=== PATIENT | male | born 1965 | race Caucasian/White ===

== ENCOUNTER 2018-04-02 11:29 | Day surgery (SDC) | payer BC ==
[2018-04-02] MEDS ORDERED: ACETAMINOPHEN 1,000 MG/100 ML BTL IV ONE (11:30)
[2018-04-02] MEDS ORDERED: MIDAZOLAM HCL 2MG/2ML VIAL IV ONE (11:30)
[2018-04-02] MEDS ORDERED: LIDOCAINE 2% MDV (20MG/ML) 20ML VIAL IV ONE (11:30)
[2018-04-02] MEDS ORDERED: PROPOFOL 10 MG/ML VIAL IV ONE (11:30)
[2018-04-02] MEDS ORDERED: KETOROLAC 30 MG/ML VIAL IVP ONE (11:30)
[2018-04-02] MEDS ORDERED: BUPIVACAINE 0.5% W/EPI MPF 30 ML VIAL IVP ONE (11:30)
[2018-04-02] MEDS ORDERED: DESFLURANE 240 ML BTL INH ONE (11:30)
--- NOTE | 2018-04-05 14:02 | Operative Note ---
DATE OF SURGERY: 04/02/2018 PREOPERATIVE DIAGNOSES: 1. LARGE RIGHT OLECRANON SPUR. 2. RIGHT OLECRANON BURSITIS. PROCEDURE: 1. EXCISION RIGHT OLECRANON SPUR. 2. EXCISION RIGHT OLECRANON BURSA. STAFF SURGEON: COCO MCCLURE M.D. ANESTHESIA: GENERAL. PREPARATION: CHLORAPREP. INDIVIDUAL CONSIDERATIONS: NONE. PROCEDURE: The patient was taken to the Operating Room and placed supine on the operating table. He had a successful induction with general anesthetic. His right upper extremity was prepped and then draped in the usual fashion. His limb was elevated. The tourniquet was inflated to 215 mmHg. The patient had a large palpable spur. An incision was made after infiltrating the skin with 0.5% Marcaine with Epinephrine over the spur, measuring about 4 cm. Sharp dissection carried down through the skin and subcutaneous tissue. The spur was underneath the bursa, which was debrided with scissor dissection. Using an osteotome, I was easily able to remove the spur, which measured about 2 cm x 1 cm. The underlying bone was smoothed with a rasp. After irrigation, I just closed the skin with interrupted nylon in a vertical mattress fashion and a Bulkee dressing was applied. The patient tolerated the procedure well. Needle and sponge counts were correct, estimated blood loss was minimal, and he was taken back to Recovery in good condition. There were no complications. JOB NUMBER: [id number] MTDD
== END 2018-04-02 16:20 | disposition home or self-care (01) ==
LOC: SUR 11:29
PROVIDERS: ATTEND Orthopaedic Surgery
DX: M25.721 Osteophyte, right elbow (principal); M70.21 Olecranon bursitis, right elbow; I10 Essential (primary) hypertension
CPT/HCPCS: 24147; 24105; 01740; J1885